=== PATIENT | male | born 1970 | race Caucasian/White ===

== ENCOUNTER 2017-07-27 14:27 | Emergency (ER) | payer SELFPAY ==
[2017-07-27 14:33] VITALS: BP 149/99; PULSE 90; RESP 16; TEMP 97.4; O2SAT 100
--- NOTE | 2017-07-27 15:04 | ED PDOC ---
HPI: Skin/Bite Injury Time Seen by Provider: 07/27/17 14:37 Chief Complaint (Nursing): Abnormal Skin Integrity Chief Complaint (Provider): Rash History/Exam Limitations: no limitations Onset/Duration Of Symptoms: Days (14 days ago) Current Symptoms Are (Timing): Still Present Additional Complaint(s): 47 y/o male with a past medical history of Hypertension presents to the ED complaining of a pruritic rash to arms bilaterally, onset of 14 days. Patient states that he has been using hydrocortisone cream w/o relief, and notes that he has not used any new creams/lotions or detergents that may have precipitated symptoms. He denies any fever, pain, numbness or tingling. Past Medical History Reviewed: Historical Data, Nursing Documentation, Vital Signs Vital Signs: Last Vital Signs Temp 97.4 F L 07/27/17 14:28 Pulse 90 07/27/17 14:28 Resp 16 07/27/17 14:28 BP 149/99 H 07/27/17 14:28 Pulse Ox 100 07/27/17 14:28 - Medical History PMH: HTN - Surgical History Surgical History: No Surg Hx - Family History Family History: States: Unknown Family Hx - Social History Current smoker - smoking cessation education provided: No Ex-Smoker (has not smoked in the last 12 months): No Alcohol: None Drugs: Denies - Home Medications Home Medications: Ambulatory Orders Medication Instructions Recorded Naproxen [Naprosyn] 500 mg PO BID PRN #30 tab 05/01/14 amLODIPine [Norvasc] 10 mg PO DAILY 05/01/14 Ibuprofen [Motrin Tab] 800 mg PO TID PRN #20 tab 05/07/15 Fluocinonide 0.05% Cream [Lidex 1 applic TOP BID PRN #1 tube 07/27/17 0.05% Cream] - Allergies Allergies/Adverse Reactions: Allergies Allergy/AdvReac Type Severity Reaction Status Date / Time No Known Allergies Allergy Verified 05/07/15 11:08 Review of Systems ROS Statement: Except As Marked, All Systems Reviewed And Found Negative Constitutional: Negative for: Fever Musculoskeletal: Negative for: Arm Pain Neurological: Negative for: Numbness Physical Exam - Reviewed Nursing Documentation Reviewed: Yes Vital Signs Reviewed: Yes - Physical Exam Skin: Positive for: Rash (scattered multiple plaques on arms bilaterally w/o surrounging erythema, central clearing, scaling, vessicles, or pustules) Pulses-Radial (L): 2+ Pulses-Radial (R): 2+ Extremity: Positive for: Capillary Refill (less than 2 seconds) - ECG O2 Sat by Pulse Oximetry: 100 (RA) Pulse Ox Interpretation: Normal Medical Decision Making Medical Decision Making: Time: --14:42 Impression: --Psoriasis vs. Eczema vs. Dermatitis Plan: --Instructed to stop using hydrocortisone cream and follow up with a front office help. Reassess: 14:55 Patient is stable for discharge home. Scribe Attestation: Documented by Sukumar Martinez acting as a scribe for [employer] [facility] Disposition - Clinical Impression Clinical Impression: Rash - Patient ED Disposition Is Patient to be Admitted: No - Disposition Referrals: [facility] [Outside] [facility] [Outside] Disposition: Routine/Home Disposition Time: 14:55 Condition: STABLE Prescriptions: Fluocinonide 0.05% Cream [Lidex 0.05% Cream] 1 applic TOP BID PRN #1 tube PRN Reason: Rash Instructions: Acute Rash (ED) Forms: [facility] (Stateless) Print Language: CITIZ[place]
== END 2017-07-27 14:55 | disposition home or self-care (01) ==
LOC: H.ER 14:27
DX: R21 Rash and other nonspecific skin eruption (principal); I10 Essential (primary) hypertension